=== PATIENT | female | born 1995 | race Caucasian/White ===

== ENCOUNTER 2024-09-15 13:02 | Outpatient (CLI) | payer OTHER, BC, SELFPAY ==
--- OUTSIDE RECORDS SUMMARY | 2024-09-10 12:00 | XMS_ITS ---
Author Organization [facility] Address [address] [facility] [address] [place] [address] Care Team Providers Care Instructor Traffic Safety Name Role Phone Glo Mensah Unavailable [phone] Milena Marion Unavailable [phone] REASON FOR VISIT 34 weeks bpp LVM to confirm mcm Medications Medication SIG (Take, Route, Frequency, Duration) Notes Start Date End Date Status Rikzldm-Opuqya-Sgqnh Pertussis 5-2.5-18.5 LF-MCG/0.5 Suspension Prefilled Syringe as directed Intramuscular 08/31/2024 Active Labetalol HCl 100mg QD Active Active Aspirin 81 81 MG Tablet Delayed Release 1 tablet Orally Once a day Active Abrysvo 120 MCG/0.5ML Solution Reconstituted as directed Intramuscular 08/31/2024 Active Social History Sex Assigned At : Social History Observation Description Sex Assigned At Female Social History Sexual History: Social Info Question Answer Notes Sexual History Had sex in the past 12 months (vaginal, oral, or anal)? Yes Drugs/Alcohol: Social Info Question Answer Notes Drugs Have you used drugs other than those for medical reasons in the past 12 months? No Alcohol Screen Did you have a drink containing alcohol in the past year? Yes How often did you have a drink containing alcohol in the past year? Monthly or less (1 point) Points 1 Interpretation Negative Vital Signs Weight 256.4 lbs 09/10/2024 BMI 40.158 kg/m2 09/10/2024 Encounters Encounter Location Date Provider Diagnosis [facility] LW-NR [address] [facility] [address] [place] [address] 09/10/2024 Milena Marion 33 weeks gestation o f Z3A.33 ; Supervision of other high risk pregnancies, third trimester O09.893 and Chronic hypertension affecting O10.919 Assessments Encounter Date Diagnosis (ICD Code) Assessment Notes Treatment Notes Treatment Clinical Notes Section Notes 09/10/2024 33 weeks gestation of (ICD-10 - Z3A.33) 09/10/2024 Supervision of other high risk pregnancies, third trimester (ICD-10 - O09.893) 09/10/2024 Chronic hypertension affecting (ICD-10 - O10.919) Plan Of Treatment Next Appt Details Follow Up: 2 - 3 Days, Reaso n: NST Provider Name:Gala Chowdhury, 09/15/2024 03:00:00 PM, [address], [address], [address], Provider Name:Gala Chowdhury, 09/15/2024 03:45:00 PM, [address], [address], Provider Name:Gala Chowdhury, 09/18/2024 02:00:00 PM, [address] , [address], [address], Provider Name:Michelle Nayana, 09/18/2024 02:45:00 PM, [address] [facility], [address], [address], Provider Name:Gala Chowdhury, 09/22/2024 03:00:00 PM, [address], [address], [address], Provider Name:Gala Chowdhury, 09/22/2024 03:45:00 PM, [address], [address], [address], Provider Name:Gala Chowdhury, 09/25/2024 02:30:00 PM, [address] , [facility] [address] [place] [address], [address], Provider Name:Michelle Kraus, 09/25/2024 03:00:00 PM, [address], [address], [place], [address], Provider Name:Gala Olivojoanna, 09/29/2024 03:00:00 PM, [address], [address], [place], [address], Provider Name:Gala Trenton, 09/29/2024 03:45:00 PM, [address], [address], [place], [address], Provider Name:Milena Marion, 10/02/2024 03:00:00 PM, [address], [address], [place], [address], Provider Name:Milena Marion, 10/02/2024 03:45:00 PM, [address], [address], [place], [address], Provider Name:Christiana Willis, 10/06/2024 01:30:00 PM, [address], [address], [place], [address], Provider Name:Christiana Willis, 10/06/2024 02:15:00 PM, [address], [address], [place], [address], Provider Name:Julieta Zapata , 10/09/2024 02:00:00 PM, [address], [address], [place], [address], Provider Name:Julieta Zapata , 10/09/2024 02:45:00 PM, [address], [address], [place], [address], Provider Name:Julieta Zapata , 10/13/2024 10:30:00 AM, [address], [address], [place], [address], Provider Name:Julieta Zapata , 10/13/2024 11:30:00 AM, [address] [facility], [facility] [address] [place] [address], [address], Provider Name:Gala Chowdhury, 10/15/2024 12:00:00 AM, [address] [facility], [address], [address], Provider Name:Gala Olivojoanna, 11/26/2024 02:45:00 PM, [address] [facility], [address], [address], Progress Notes * MILADYDanaya ADOB:1995 (28 yo F)Acc No.[id number]:09/10/2024 Progress Note Patient: Olesya Haines Provider: Ciera Marion MD :1995 A ge:28 Y S ex:Female Date:09/10/2024 Address:[address] [place] [address] Subjective: * Chief Complaints: * 3 4 weeks bpp LVM to confirm mcm * Medical History: Obesity High Blood Pressure : yes Medical History Verified * Explosives Truck Driver History: P ap Smear History: D ate of Last Pap/HPV: 0 -2021 L ast Pap/HPV Results: N ormal Pap M enstrual History: C urrently having menstrual cycles? Y es L MP: 0 10/25/2023 L ength Between Cycles: 2 1-32 Days L ength of Flow: 2 -7 Days S exual Activity/Contraception: C urrently sexually active Y es E dede sexually active Y es B irth control (Historical) o ral contraceptive pill. L ast Pap Smear/HPV Date (Historical) , negative. * OB History: P regnancy History (GPA) T otal Pregnancies 1, Full Term 0, Premature 0, AB. Induced 0, AB. Spontaneous 0, Ectopics 0, Multiple Births 0, Living 0. G P : 1 P regnancy # 1: C urrent . * Surgical History: none Surgical History verified. * Hospitalization/Major Diagno stic Procedure: none Hospitalization Verified. * Family History: M other: diagnosed with Diabetes mellitus without mention of complication, type II or unspecified type, not stated as uncontrolled. F ather: diagnosed with Unspecified essential hypertension. M atecarmen Grand Father: diagnosed with Heart disease, Diabetes mellitus without mention of complication, type II or unspecified type, not stated as uncontrolled. P aternal Grand Mother: diagnosed with Heart disease. F amily History Verified.. * Social History: T obacco Use: T obacco Use/Smoking S RAHUL STATUS: Never smoker. S exual History: S exual History H ad sex in the past 12 months (vaginal, oral, or anal)? Y es D rugs/Alcohol: D rugs H ave you used drugs other than those for medical reasons in the past 12 months? N o Alcohol Screen D id you have a drink containing alcohol in the past year? Y es H ow often did you have a drink containing alcohol in the past year? M onthly or less (1 point) P oints 1 I nterpretation N egative S ocial History Verified. * Medications: T akingAbrysvo(RSV Pre-Fusion F A&B Vac Rcmb) 120 MCG/0.5ML Solution Reconstituted as directed Intramuscular Aspirin 81(Aspirin) 81 MG Tablet Delayed Release 1 tablet Orally Once a day Labetalol HCl , Notes to Pharmacist: 100mg QDPrenatal( MV-Min-Fe Fum-FA-DHA) Kuhhhbt-Mjaluk-Tjqay Pertussis 5-2.5-18.5 LF-MCG/0.5 Suspension Prefilled Syringe as directed Intramuscular Medication List reviewed and reconciled with the patientTaking Abrysvo(RSV Pre-Fusion F A&B Vac Rcmb) 120 MCG/0.5ML Solution Reconstituted as directed Intramuscular Taking Aspirin 81(Aspirin) 81 MG Tablet Delayed Release 1 tablet Orally Once a day Taking Labetalol HCl , Notes to Pharmacist: 100mg QDTaking ( MV-Min-Fe Fum-FA-DHA) Taking Imebdny-Oecxby-Qcexm Pertussis 5-2.5-18.5 LF-MCG/0.5 Suspension Prefilled Syringe as directed Intramuscular Medication List reviewed and reconciled with the patient * Allergies: y esAllergies Verified. Objective: * Vitals: W t: 256.4 lbs, BMI: 40.158 Index. Assessment: * Assessment: 1. S upervision of other high risk pregnancies, third trimester - O09.893 (Primary) ?2. 3 3 weeks gestation of - Z3A.33 3 . C hronic hypertension affecting - O10.919 Plan: * Procedure Codes: r ob Return OB [id number] HEDIS SUBSEQUENT CARE * Follow Up: 2 - 3 Days (Reason: NST) Billing Information: * Visit Code: juan diego Return OB Visit. * Procedure Codes: juan diego Return OB Visit. 0502F HEDIS SUBSEQUENT CARE. * Sign off status: Completed Visit Status: A RR (Check-In) true * Provider: Ciera Marion MD Date: 09/10/2024 Generated for Polo gray/Mercy/Maryitting on: 09/15/2024 01:16 PM EDT
--- OUTSIDE RECORDS SUMMARY | 2024-09-15 13:15 | XMS_ITS | Data Portability ---
Author Organization [facility]OD[facility]IND Address [address] [place] [address] Assessment No assessment recorded. Plan of Treatment Reminders Order Date Submit Date Provider Last Modified By Organization Details Last Modified Time Details Appointments None record ed. Lab None record ed. Referral None record ed. Procedures None record ed. Surgeries None record ed. Imaging None record ed. Medication Orders None record ed. Patient TargetsNo targets recorded. Patient InstructionsNo instructions recorded. Reason for Referral None Reported. Problems Name Problem SNOMED Code Status Onset Date Resolution Date Notes Provider Name and Address Organization Details Recorded Time Essential hypertension 99351079 Active 2023 Janeen Camargo [facility] 14:40:35 Obesity 892531527 Active 2023 Constantino Nelson MD [address] [place] [address], [phone] [place] [address] Primary Care 09:51:43 Problem Notes None recorded. Procedures Surgical History Date Name Laterality Status Provider Name and Address Organization Details Recorded Time 07/02/2022 Date of Last Pap Smear completed Janeen Nyaradha Camargo [facility] 04/10/2023 14:40:48 Imaging Results None recorded. Procedure Notes None recorded. Medical Equipment None Reported. Allergies No known drug allergies Medications Name Sig Start Date Stop Date Status Note LastModified by Organization Details LastModified Time phentermine 15 mg capsule TAKE 1 CAPSULE BY MOUTH ONCE DAILY FOR 30 DAYS 07/04 completed Not Available Not Available Not Available triamcinolo ne acetonide 0.1 % topical cream APPLY TOPICALLY TWICE DAILY 04/10 completed Not Available Not Available Not Available phentermine 30 mg capsule TAKE 1 CAPSULE BY MOUTH ONCE DAILY FOR 30 DAYS active Not Available Not Available No t Available amoxicillin 875 mg tablet TAKE 1 TABLET BY MOUTH TWICE DAILY FOR 10 DAYS 04/10 completed Not Available Not Available Not Available lisinopril 5 mg tablet TAKE 1 TABLET BY MOUTH ONCE DAILY active Not Available Not Available No t Available nitrofurant oin monohydrate /macrocryst als 100 mg capsule active Not Available Not Available Not Available Layolis Fe 0.8 mg-25 mcg (24)/75 mg (4) chewable tablet CHEW AND SWALLOW 1 TABLET BY MOUTH ONCE DAILY active Not Available Not Available No t Available Vitals Date Recorded Body height Body mass index (BMI) Body weight Provider Name and Address Organization Details Last Updated DateTime 04/10/2023 170.18 cm 33.1 kg/m2 39352.35 g Janeen Camargo [facility] 04/10/2023 14:39:41 Date Recorded Body height Heart rate Respiratory rate Body temperature Body mass index (BMI) Body weight Oxygen saturation Oxygen saturation in Arterial blood by Pulse oximetry Systolic And Diastolic Provider Name and Address Organization Details Last Updated DateTime 4 170.18 cm 95 /min 18 /min 98 [degF] 32.2 kg/m2 27320.5 9 g 97 % 97 % 102/70 mm[Hg] Janeen Fay [facility] 4 11:32:31 Date Recorded Body height Provider Name an d Address Organization Details Last Updated DateTime 07/03/2023 170.18 cm Vincentanders Betty [facility] 07/03/2023 13:35:02 Date Recorded Heart rate Body temperature Body mass index (BMI) Body weight Oxygen saturation Oxygen saturation in Arterial blood by Pulse oximetry Systolic And Diastolic Provider Name and Address Organization Details Last Updated DateTime 4 82 /min 97.9 [degF] 32.6 kg/m2 30741.2 1 g 99 % 99 % 114/72 mm[Hg] Tona rachel [facility] 4 13:40:44 Social History None recorded. Functional Status None recorded. Mental Status None recorded. Family History Relationship Description Onset Age of this Age Resolved Age Notes LastModified by Organization Details LastModified Time Mother Diabetes mellitus [email or web address] Not available 2023 14:41:12 Father Hypertensive disorder [email or web address] Not available 2023 14:41:21 Medical History No medical history recorded. Gynecological History Statement/Question Response Date of Last Pap Smear 07/02/2022 Date of LMP 03/25/2023 LMP Approximate Obstetrics History GPAL:G 0 P 0 0 0 0 Immunizations Vaccine Type Date Status Note Provider Nam e and Address Organization Details Recorded Time Influenza, recombinant, quadrivalent, PF 09/12/2021 completed Janeen Camargo [facility] 05/08/2023 11:24:18 COVID-19, mRNA, LNP-S, PF, 30 mcg/0.3 mL dose 10/21/2020 completed Janeen Camargo [facility] 05/08/2023 11:24:18 COVID-19, mRNA, LNP-S, PF, 30 mcg/0.3 mL dose 11/11/2020 completed Janeen Camargo [facility] 05/08/2023 11:24:18 COVID-19, mRNA, LNP-S, PF, 30 mcg/0.3 mL dose, lucila-sucrose 05/05/2021 completed Janeen Camargo [facility] 05/08/2023 11:24:18 Tdap 05/08/2022 completed Janeen Camargo [facility] 05/08/2023 11:24:18 Hep A, adult 01/17/2018 completed Janeen Camargo [facility] 05/08/2023 11:24:18 Influenza, split virus, quadrivalent, PF 11/30/2019 completed Janeen Martinan Camargo null, [facility] 05/08/2023 11:24:18 Influenza, split virus, quadrivalent, PF 12/05/2020 completed [facility] 05/08/2023 11:24:18 Influenza, split virus, quadrivalent, PF 12/21/2022 completed [facility] 05/08/2023 11:24:19 Influenza, split virus, quadrivalent, PF 12/25/2021 completed Janeen Martinan Mary Jo longoria, [facility] 05/08/2023 11:24:19 Influenza, split virus, quadrivalent, PF 01/05/2019 [facility] 05/08/2023 11:24:19 Past Encounters Encounter ID Performer Location Encounter Start Date Encounter Closed Date Diagnosis/Indication Diagnosis SNOMED-CT Code Diagnosis ICD10 Code Diagnosis Note [id number] ALLEN ISRAEL APRN Main Office [address] [place] [address] 04/10/2023 14:37:29 04/10/2023 15:14:26 Obesity 219601484 E66.9 Advised patient that working to achieve a healthy body weight is very important for [facility]cf health and prevention of diseasePat ient was previously successful with the use of phentermin e losing 30-40lb.Hi story of hypertensi on, blood pressure well controlled with lisinopril .Start phentermin e 15mg daily. Discussed medication use and potential side effects.Gi tobias goal of 30min of exercise 5x/weekDis cussed calorie restrictio n and given daily calorie goal of 7935-1649 based on current age, weight and activity level.Disc ussed other weight loss interventi ons including weight loss medicine and/or weight loss surgery.At testation: I, Constantino Nelson MD, discussed case with Allen Israel APRN. I agree with assessment and plan as outlined above.Phen termine started and send via patient case at 15mg dailyretur n in 30 days [id number] ALLEN ISRA[address] APRN Main Office [address] [place] [address] 05/08/2023 11:30:05 05/08/2023 12:05:10 Obesity 259058768 E66.9 Advised patient that working to achieve a healthy body weight is very important for termite technician health and prevention of diseasePat ient was previously successful with the use of phentermin e losing 30-40lb.Hi story of hypertensi on, blood pressure well controlled with lisinopril .Taking phentermin e 15mg daily. Tolerating well. Denies any negative side effects.-5 lb since previous visit.Cont inue current dose.Given goal of 30min of exercise 5x/weekDis cussed calorie restrictio n and given daily calorie goal of 1380-2184 based on current age, weight and activity level.Disc ussed other weight loss interventi ons including weight loss medicine and/or weight loss surgery.At testation: Constantino Romo MD, discussed case with Allen Israel APRN. I agree with assessment and plan as outlined above. Cosmetic surgery [id number] 0 Z41.1 Total Units: 14 units. globellar complexAdv ised to return in 3 months for repeat procedureA dvised to avoid rubbing area for 12-24 hrs.No vigorous exercise for 24 hrsReturn if redness, swelling or signs of allergic reaction occur [id number] ALLEN ISRAEL APRN Main Office [address] [place] [address] 05/29/2023 10:30:06 05/29/2023 11:01:07 Cosmetic surgery 55392562 Z41.1 Total Units: 6 units. frontalisA dvised to return in 3 months for repeat procedureA dvised to avoid rubbing area for 12-24 hrs.No vigorous exercise for 24 hrsReturn if redness, swelling or signs of allergic reaction occur Attestatio n: I, Constantino Nelson MD, discussed case with Allen Israel APRN. I agree with assessment and plan as outlined above. [id number] ALL[address] ISRA[address] APRN Main Office [address] [place] [address] 07/03/2023 13:33:49 07/03/2023 14:22:21 Obesity 971391603 E66.9 Advised patient that working to achieve a healthy body weight is very important for [facility] health and prevention of diseasePat ient was previously successful with the use of phentermin e losing 30-40lb.Hi story of hypertensi on, blood pressure well controlled with lisinopril .Taking phentermin e 15mg daily. Tolerating well. Denies any negative side effects.+3 lblb since previous visit. Patient reports appetite not as well controlled with current dose.Incre ase phentermin e 30mg once daily.Disc ussed medication use and potential side effects.UD S UTD Given goal of 30min of exercise 5x/weekDis cussed calorie restrictio n and given daily calorie goal of 0996-2049 based on current age, weight and activity level.Disc ussed other weight loss interventi ons including weight loss medicine and/or weight loss surgery.At testation: I, Constantino Nelson MD, discussed case with Allen Israel APRN. I agree with assessment and plan as outlined above. Health Concerns Section Related Observation LastModified by Organization Detai ls LastModified Time None Recorded Concern Status LastModified by Organization Details LastModified Time None Recorded Advance Directives Directive None Recorded Payers Insurance Date Sequence Insurance Name Policy Number Policy [employer] Covered Member ID [employer] Member ID Guarantor Name 08/03/2023 1 [place] [id number] Alexandre Diaz II [id number] Olesya Diaz Notes Date Note Type Note Provider Name and Address Organization Details Recorded Time 04/10/2023 text/html Pt presents to [facility] care for wt loss Constantino Nelson MD [address] [place] [address], [phone], [facility] 04/17/2023 08:24:09 05/08/2023 text/html Pt presents for monthly weight loss follow up and would like botox. Constantino Nelson MD [address] [place] [address], [phone], [facility] 05/10/2023 08:09:31 05/29/2023 text/html Patient here to follow up on botox. Constantino Nelson MD [address] [place] [address], [phone], [facility] 05/30/2023 14:17:02 07/03/2023 text/html weight loss follow up Constantino Nelson MD [address] [place] [address], [phone], [facility] 07/05/2023 08:20:54 OBGyn Episode No OBEpisode recorded.
--- OUTSIDE RECORDS SUMMARY | 2024-09-15 13:15 | XMS_ITS | Clinical Summary ---
[facility] Address [address] [place] [address] Care Team Providers Care [employer] Rec[employer]iter Name Role Phone AdamsMai cool Shayna SEMAJ Primary Care Provider Medications sodium-potassiu m-magnesium sulfates (Suprep Bowel Prep Kit) 17.5-3.13-1.6 GM/177ML solution oral solution Take 2 bottles by mouth Take As Directed. Do not eat the day before your procedure. If you didn't receive instructions call [phone]. 354 mL 09/18/19 24 Active hydrocortisone (ANUSOL-HC) 25 MG suppository Insert 1 suppository into the rectum Every Night. 14 suppository 10/04/19 24 Active Encounters Date Type Department Care Team Description 07/03/2024 9:35 AM EDT Lab [facility] [address] [place] [id number] Supervision of high risk in second trimester 07/03/2024 Travel from Last 3 Months Social History Tobacco Use Types Packs/Day Years Used Date Smoking Tobacco: Never Assessed Comments Unknown Sex and Gender Information Value Date Recorded Sex Assigned at Not on file Legal Sex Female 10:48 AM EDT Gender Identity Not on file Sexual Orientation Not on file Plan of Treatment Health Maintenance Due Date Last Done Comments Annual Gynecologic Pelvic and Breast Exam 1994 PAP SMEAR 11/07/2015 ANNUAL PHYSICAL 08/19/2023 COVID-19 Vaccine (4 - 2024-25 season) 2023 05/05/2021, 11/11/2020, 10/21/2020 INFLUENZA VACCINE 12/02/2024 12/21/2022, , 09/12/2021, Additional history exists TDAP/TD VACCINES (2 - Td or Tdap) 05/08/2032 05/08/2022 HEPATITIS C SCREENING Completed 03/27/2024 Pneumococcal Vaccine 0-49 Aged Out No longer eligible based on patient's age to complete this topic Procedures Procedure Name Priority Date/Time Associated Diagnosis Comments POCT POST GLUCOSE TOLERANCE Routine 07/03/2024 10:33 AM EDT Supervision of high risk in second trimester TREPONEMA PALLIDUM AB W/REFLEX RPR Routine 07/03/2024 10:33 AM EDT Supervision of high risk in second trimester CBC (NO DIFF) Routine 07/03/2024 10:33 AM EDT Supervision of high risk in second trimester GLUCOSE, POST 50 GM GLUCOLA Routine 07/03/2024 10:33 AM EDT Supervision of high risk in second trimester HEPATITIS C ANTIBODY Routine 03/27/2024 10:07 AM EST 10 weeks gestation of First trimester from Last 3 Months or Most Recently Relevant to Health Maintenance Results * Treponema pallidum AB w/Reflex RPR (07/03/2024 10:33 AM EDT) Treponemal AB Total Non-Reacti ve Non-React marti 07/03/2024 2:39 PM EDT [facility] Blood Venipuncture / Unknown 07/03/2024 10:33 AM EDT 07/03/2024 10:38 AM EDT Narrative [facility] - 07/03/2024 2:39 PM EDT Reactive results will reflex RPR testing. us Gala Chowdhury MD LAB BLOOD ORDERABLES Final Re sult Performing Organization Address City/[facility]/ZIP Co de Phone Number [facility]
[address] [place] [address], * POCT Post Glucose Tolerance (07/03/2024 10:33 AM EDT) Blood Venipuncture / Unknown 07/03/2024 10:33 AM EDT 07/03/2024 10:38 AM EDT us Gala Chowdhury MD POINT OF CARE TEST ORDERABLES Final Result Performing Organization Address [facility] Co de Phone Number [facility]
[address] [place] [address], * Glucose, Post 50 Gm Glucola (07/03/2024 10:33 AM EDT) Gestational GCT 122 65 - 139 mg/dL 07/03/2024 11:25 AM EDT [facility] Blood Venipuncture / Unknown 07/03/2024 10:33 AM EDT 07/03/2024 10:38 AM EDT us Gala Chowdhury MD LAB BLOOD ORDERABLES Final Re sult Performing Organization Address [facility] Co de Phone Number [facility]
[address] [place] [address], * CBC (No Diff) (07/03/2024 10:33 AM EDT) WBC 8.44 3.40 - 10.80 10*3/mm3 07/03/2024 2:14 PM EDT [facility] RBC 4.36 3.77 - 5.28 10*6/mm3 07/03/2024 2:14 PM EDT [facility] Hemoglobin 12.3 12.0 - 15.9 g/dL 07/03/2024 2:14 PM EDT [facility] Hematocrit 37.4 34.0 - 46.6 % 07/03/2024 2:14 PM EDT [facility] MCV 85.8 79.0 - 97.0 fL 07/03/2024 2:14 PM EDT [facility] MCH 28.2 26.6 - 33.0 pg 07/03/2024 2:14 PM EDT [facility] MCHC 32.9 31.5 - 35.7 g/dL 07/03/2024 2:14 PM EDT [facility] RDW 12.4 12.3 - 15.4 % 07/03/2024 2:14 PM EDT [facility] RDW-SD 38.6 37.0 - 54.0 fl 07/03/2024 2:14 PM EDT [facility] MPV 9.4 6.0 - 12.0 fL 07/03/2024 2:14 PM EDT [facility] Platelets 411 140 - 450 10*3/mm3 07/03/2024 2:14 PM EDT [facility] Blood Venipuncture / Unknown 07/03/2024 10:33 AM EDT 07/03/2024 10:38 AM EDT us Gala Chowdhury MD LAB BLOOD ORDERABLES Final Re sult Performing Organization Address [facility]/ZIP Co de Phone Number [facility]
[address] [place] [address], * Hepatitis C Antibody (03/27/2024 10:07 AM EST) Hepatitis C Ab Non-Reacti ve Non-Reacti ve 03/27/2024 2:50 PM EST [facility] Blood Venipuncture / Unknown 03/27/2024 10:07 AM EST 03/27/2024 10:17 AM EST us Gala Chowdhury MD LAB BLOOD ORDERABLES Final Re sult [facility]
[address] [place] [address], from Last 3 Months or Most Recently Relevant to Health Maintenance Insurance [facility] [employer] PPO Care Teams [employer] Rec[employer]iter Relationship Specialty Start Date End Date Mai Adams APRN [facility] [place] [address] PCP - General Family Medicine 11/24/19
--- OUTSIDE RECORDS SUMMARY | 2024-09-15 13:15 | XMS_ITS | Patient Health Record ---
Author Organization [facility] Group Address [address] [place] [address] Care Team Providers Care Electronic Warfare Technician Name Role Phone Glo Mensah Unavailable [phone] Michelle Kraus Unavailable [phone] Milena Marion Unavailable [phone] Gala Chowdhury Unavailable [phone] Julieta Zapata Unavailable [phone] Christiana Willis Unavailable [phone] Allergies No Known Allergies Results Component Value Reference Range Notes *US Pelvis Complete Transabd ominal/Vaginal (Non-OB) Reviewed date:11/01/2023 08:11:59 AM Interpretation: Performing Lab: Notes/Report: [facility] Transvaginal Pelvic Study Report Name: RASHAUN HENNING Accession/Encounter No:[id number] : 1995 Age: 27 Gender: F Study Date: Oct 31, 2023 Study Time: 11:01 AM Reading Group: Diandra Velazquez MD Referring Group: Glo Mensah APRN Ordering Phys: Glo Mensah APRN Electric Refrigerator Servicer: Indu Hankins RDMS Equipment: Affiniti 30 Study Quality: Good Indications: Cyst and Fibroid seen on outside scan A complete pelvic transvaginal ultrasound was performed. Sag AP Trans Volume cm cm cm ml Uterus 4.22 2.59 3.75 21.46 Uterine fibroid 1: 1.85 1.36 1.83 Right ovary: 2.58 2.17 2.22 6.51 Left ovary: 3.35 2.95 2.62 13.56 Endometrium thickness: 2.2 mm Findings: A transvaginal exam was performed. The uterus is normal and anteverted. The uterus is 4.22 x 2.59 x 3.75 cm, with volume of 21.46 ml. The endometrium measures 2.2 mm. Posterior mid uterine fibroid noted measuring 1.85 x 1.36 x 1.83 cm. Subserosal uterine fibroid. Unremarkable right ovary measures 2.58 x 2.17 x 2.22 cm, volume 6.51 ml. Unremarkable left ovary measures 3.35 x 2.95 x 2.62 cm, volume 13.56 ml. The cervix is 1.55 cm long. Conclusions: Uterus is anteverted with a posterior fibroid. Ovaries appear normal with a dominant follicle noted on the left. No free fluid or adnexal masses noted Approved By: Diandra Velazquez MD Approved at: October 31, 2023 07:28 PM EDT Electronically Signed on Studycast RASHAUN HENNING 2023-10-31 Page 1 of 1 [facility] - , [facility] [address] *US OB Complete Transabdomin al/Vaginal Reviewed date:03/27/2024 12:32:46 PM Interpretation: Performing Lab: Notes/Report: [facility] Transvaginal Obstetric Study Report Name: RASHAUN HENNING Accession/Encounter No:[id number] : 1995 Age: 28 Gender: F Study Date: Mar 27, 2024 Study Time: 08:40 AM Reading Group: Gala Chowdhury MD Referring Group: Gala Chowdhury MD Ordering Phys: Gala Chowdhury MD Performing User: Lili Duarte RDMS Equipment: Affiniti 30 Study Quality: Good Indications: NOB A 1st Trimester ultrasound was performed. General Information Trimester: 1st trimester Gestations: 1 : Intrauterine Gestational Age (Best) Best: 10w 0d Determined by: LMP ROYER: 2024-10-23 Gestational Age (LMP) LMP: 10w 0d First Day of LMP: 2024-01-17 ROYER: 2024-10-23 Gestational Age (Current US) Current US: 9w 3d Current US ROYER by: ROYER: 2024-10-27 General Evaluation cardiac activity: Present Gestational sac: Present Yolk sac: Present pole: Present Biometry (Fetus A) HR: 165 bpm [place]-rump length:26.96 mm9w 3d 11% Findings: Anatomy: Sonographic evaluation reveals mendez intrauterine . cardiac activity present. growth appears normal. Maternal Anatomy: There is a 1.44 x 0.67 x 0.98 cm intramural uterine fibroid in the anterior uterus. There is a 1.7 x 1.83 x 1.86 cm subserosal uterine fibroid. There is a uterine fibroid in the posterior uterus. Conclusions: Mendez IUP noted with cardiac activity. Size is consistent with LMP dating. There are two very small fibroids noted, measurements above. Ovaries and bilateral adnexa appear normal. Approved By: Gala Chowdhury MD Approved at: March 27, 2024 12:07 PM EST Electronically Signed on Studycast RASHAUN HENNING 2024-03-27 Page 1 of 1 Imaging Center - , [facility] [place] *US OB Detailed Anatomy Reviewed date:06/05/2024 05:29:57 PM Interpretation: Performing Lab: Notes/Report: [facility] Transabdominal Obstetric Study Report Name: RASHAUN HENNING Accession/Encounter No:[id number] : 1995 Age: 28 Gender: F Study Date: Jun 05, 2024 Study Time: 09:33 AM Reading Group: Gala Chowdhury MD Referring Group: Gala Chowdhury MD Ordering Phys: Gala Chowdhury MD Performing User: Lili Duarte RDMS Equipment: Affiniti 30 Study Quality: Good Indications: anatomy scan Risk Factors: CHTN Obesity An anatomy ultrasound was performed. General Information Trimester: 2nd/3rd trimester Gestations: 1 : Intrauterine Gestational Age (Best) Best: 20w 0d Determined by: LMP ROYER: 2024-10-23 Gestational Age (Prev Study) Previous US: 20w 0d Previous Study: Mar 2024 by LMP ROYER: 2024-10-23 Gestational Age (LMP) LMP: 20w 0d First Day of LMP: 2024-01-17 ROYER: 2024-10-23 Gestational Age (Current US) Current US: 20w 0d ROYER: 2024-10-23 General Evaluation gender: F cardiac activity: Present Presentation/Position: Cephalic Placental cord insert: Centrally located Placental location: Posterior Biometry (Fetus A) EFW: 315.2g 11 oz 47% MICHELLE-76 HR: 147 bpm BPD: 4.55 cm 19w 5d 39% HADLOCK-84 HC: 17.48 cm20w 0d 42% HADLOCK-84 AC: 15.24 cm20w 3d 60% HADLOCK-84 FL: 2.94 cm 19w 0d 14% HADLOCK-84 FL/HC: 0.17 HC/AC: 1.15 FL/BPD: 0.65 FL/AC: 0.19 Cisterna magna: 3.8 mm Lateral vents: 4.7 mm TCD: 1.74 cm 18w 2d Nuchal fold: 3.46 mm Anatomy (Fetus A) Midline falx: Normal Cisterna magna: Normal Choroid plexus: Normal Lateral ventricles: Normal Cerebellum: Normal CSP: Normal Orbits: Normal Face: Normal Profile: Normal Nasal bone: Normal Nose/Lips: Suboptimal Right upper extr: Normal Right lower extr: Normal Left upper extr: Normal Left lower extr: Normal 4-chamber heart: Suboptimal LVOT: Suboptimal RVOT: Suboptimal Cardiac rhythm: Normal 3VTV: Suboptimal 3VV: Suboptimal Spine: Normal Stomach: Normal Diaphragm: Normal Bowel: Normal Right kidney: Normal Left kidney: Normal Bladder: Normal Abdom. cord insert: Normal Cord vessels: 3 vessel cord Findings: Anatomy: Sonographic evaluation reveals mendez intrauterine in cephalic position, centrally located cord insert. Posterior placenta. cardiac activity present. growth appears normal. Maternal Anatomy: Cervix is 3.21 cm long. Conclusions: Mendez IUP noted with cardiac activity. No anomalies noted at this time however nose/lips, and heart are suboptimal due to position . growth is consistent with dating. Fluid appears normal Approved By: Gala Chowdhury MD Approved at: June 05, 2024 04:40 PM EDT Electronically Signed on Studycast RASHAUN HENNING 2024-06-05 Page 1 of 1 Imaging Center - , [facility] OB Follow-Up Reviewed date:08/31/2024 12:44:15 PM Interpretation: Performing Lab: Notes/Report: [facility] Transabdominal Obstetric Study Report Name: RASHAUN HENNING Accession/Encounter No:[id number] Procedure/Order ID: [id number] : 1995 Age: 28 Gender: F Study Date: Aug 28, 2024 Study Time: 02:15 PM Reading Group: Diandra Velazquez MD Referring Group: Julieta Zapata NP Ordering Phys: Julieta Zapata NP Performing User: Lili Duarte RDMS Equipment: Affiniti 30 Study Quality: Good Indications: growth and BPP Risk Factors: CHTN Obesity A biophysical profile and growth ultrasound was performed. Disclaimer: Ultrasound cannot detect all structural defects or underlying genetic abnormalities. Additionally, some abnormalities develop over time and/or are not detectable until after . General Information Trimester: 2nd/3rd trimester Gestations: 1 : Intrauterine Gestational Age (Best) Best: 32w 0d Determined by: LMP ROYER: 2024-10-23 Gestational Age (Prev Study) Previous US: 32w 0d Previous Study: Mar 2024 by LMP ROYER: 2024-10-23 Gestational Age (LMP) LMP: 32w 0d First Day of LMP: 2024-01-17 ROYER: 2024-10-23 Gestational Age (Current US) Current US: 32w 4d ROYER: 2024-10-19 General Evaluation cardiac activity: Present Presentation/Position: Cephalic Placental location: Posterior Biophysical Profile: Total score: 8 of 8 Heart rate Breathing 2 Movement 2 Tone 2 AFV 2 Amniotic fluid index: 10.66 cm LUQ: 3.34 cm LLQ: 2.18 cm RUQ: 1.7 cm RLQ: 3.44 cm Fluid: Normal Biometry (Fetus A) EFW: 1933.9g 4 lb 4 oz 61% MICHELLE-76 HR: 133 bpm BPD: 8.05 cm 32w 2d 51% HADLOCK-84 HC: 29.89 cm33w 1d 42% HADLOCK-84 AC: 28.12 cm32w 1d 54% HADLOCK-84 FL: 6.19 cm 32w 1d 39% HADLOCK-84 FL/HC: 0.21 HC/AC: 1.06 FL/BPD: 0.77 FL/AC: 0.22 Anatomy (Fetus A) Stomach: Normal Diaphragm: Normal Right kidney: Normal Left kidney: Normal Bladder: Normal Findings: Anatomy: Sonographic evaluation reveals mendez intrauterine in cephalic position. Posterior placenta. cardiac activity present. growth appears normal. Biophysical profile is 8 of 8. Normal ARASH (ARASH = 10.66). Conclusions: Mendez IUP noted with cardiac activity. growth is consistent with dating. [facility] 10/09 Approved By: Diandra Velazquez MD Approved at: August 30, 2024 05:08 PM EDT Electronically Signed on Studycast RASHAUN HENNING 2024-08-28 Page 1 of 1 Imaging Center - , [facility] OB Biophysical Profile w /o Non-Stress Testing Reviewed date:09/03/2024 06:15:00 PM Interpretation: Performing Lab: Notes/Report: [facility] Transabdominal Obstetric Study Report Name: RASHAUN HENNING Accession/Encounter No:[id number] Procedure/Order ID: [id number] : 1995 Age: 28 Gender: F Study Date: Sep 03, 2024 Study Time: 02:40 PM Reading Group: Gala Chowdhury MD Referring Group: Gala Chowdhury MD Ordering Phys: Gala Chowdhury MD Performing User: Komal Palomo RDMS Equipment: Affiniti 30 Study Quality: Good Indications: BPP Risk Factors: CHTN. Obesity A biophysical profile ultrasound was performed. Disclaimer: Ultrasound cannot detect all structural defects or underlying genetic abnormalities. Additionally, some abnormalities develop over time and/or are not detectable until after . General Information Trimester: 2nd/3rd trimester Gestations: 1 : Intrauterine Gestational Age (Best) Best: 32w 6d Determined by: LMP ROYER: 2024-10-23 Gestational Age (LMP) LMP: 32w 6d First Day of LMP: 2024-01-17 ROYER: 2024-10-23 General Evaluation gender: F cardiac activity: Present Presentation/Position: Cephalic Placental location: Posterior Biophysical Profile: Total score: 8 of 8 Heart rate Breathing 2 Movement 2 Tone 2 AFV 2 Amniotic fluid index: 12.08 cm ARASH percentile: 33 % LUQ: 4.23 cm LLQ: 3.3 cm RUQ: 3.1 cm RLQ: 1.45 cm Fluid: Normal Biometry (Fetus A) HR: 138 bpm Anatomy (Fetus A) Stomach: Normal Right kidney: Normal Left kidney: Normal Bladder: Normal Findings: Anatomy: Sonographic evaluation reveals mendez intrauterine in cephalic position. Posterior placenta. cardiac activity present. Biophysical profile is 8 of 8. Normal ARASH (ARSAH = 12 .08). Conclusions: Mendez IUP noted with cardiac activity. [facility] 10/09 Approved By: Gala Chowdhury MD Approved at: September 03, 2024 06:11 PM EDT Electronically Signed on Studycast RASHAUN HENNING 2024-09-03 Page 1 of 1 Imaging Center - , [facility] *US OB Biophysical Profile w /o Non-Stress Testing Reviewed date:09/14/2024 08:41:14 AM Interpretation: Performing Lab: Notes/Report: [facility] Transabdominal Obstetric Study Report Name: RASHAUN HENNING Accession/Encounter No:[id number] Procedure/Order ID: [id number] : 1995 Age: 28 Gender: F Study Date: Sep 10, 2024 Study Time: 03:25 PM Reading Group: Diandra Velazquez MD Referring Group: Milena Marion MD Ordering Phys: Milena Marion MD Performing User: Lili Duarte RDMS Equipment: Affiniti 30 Study Quality: Good Indications: BPP Risk Factors: CHTN Obesity A biophysical profile ultrasound was performed. Disclaimer: Ultrasound cannot detect all structural defects or underlying genetic abnormalities. Additionally, some abnormalities develop over time and/or are not detectable until after . General Information Trimester: 2nd/3rd trimester Gestations: 1 : Intrauterine Gestational Age (Best) Best: 33w 6d Determined by: LMP ROYER: 2024-10-23 Gestational Age (Prev Study) Previous US: 33w 6d Previous Study: Mar 2024 by LMP ROYER: 2024-10-23 Gestational Age (LMP) LMP: 33w 6d First Day of LMP: 2024-01-17 ROYER: 2024-10-23 General Evaluation cardiac activity: Present Presentation/Position: Cephalic Placental location: Posterior Biophysical Profile: Total score: 8 of 8 Heart rate Breathing 2 Movement 2 Tone 2 AFV 2 Amniotic fluid index: 10.17 cm LUQ: 1.24 cm LLQ: 2.22 cm RUQ: 3.15 cm RLQ: 3.56 cm Fluid: Normal Biometry (Fetus A) HR: 140 bpm Anatomy (Fetus A) Stomach: Normal Diaphragm: Normal Bladder: Normal Findings: Anatomy: Sonographic evaluation reveals mendez intrauterine in cephalic position. Posterior placenta. cardiac activity present. Biophysical profile is 8 of 8. Normal ARASH (ARASH = 10 .17). Conclusions: Mendez IUP noted with cardiac activity. [facility] 10/09 Approved By: Diandra Velazquez MD Approved at: September 13, 2024 06:21 PM EDT Electronically Signed on Studycast RASHAUN HENNING 2024-09-10 Page 1 of 1 [facility] - , [facility] URINE DRUG SCREEN Reviewed date:03/27/2024 11:20:08 AM Interpretation:Negative Performing Lab: Notes/Report: Cutoff For Drugs Screened: Amphetamines 500 ng/ml Barbiturates 200 ng/ml Benzodiazepines 150 ng/ml Cocaine 150 ng/ml Methadone 200 ng/ml Opiates 100 ng/ml Phencyclidine 25 ng/ml THC 50 ng/ml Methamphetamine 500 ng/ml Tricyclic Antidepressants 300 ng/ml Oxycodone 100 ng/ml Buprenorphine 10 ng/ml The normal value for all drugs tested is negative. This report includes unconfirmed screening results, with the cutoff values listed, to be used for medical treatment purposes only. Unconfirmed results must not be used for non-medical purposes such as employment or legal testing. Clinical consideration should be applied to any drug of abuse test, particularly when unconfirmed results are used. THC URINE Negative Negative PHENCYCLIDINE SCREEN URINE Negative Negative COCAINE, URINE Negative Negative METHAMPHETAMINE Negative Negative OPIATES URINE Negative Negative AMPHETAMINE SCREEN URINE Negative Negative BENZODIAZEPINE SCREEN, URINE Negative Negative TRICYCLIC ANTIDEPRESSANTS SCREEN URINE Negative Negative METHADONE SCREEN, URINE Negative Negative BARBITURATE SCREEN, URINE Negative Negative OXYCODONE SCREEN URINE Negative Negative BUPRENORPHINE Negative Negative Lab specimens received at a [facility].?See result details for the performing location information. URINE CULTURE Reviewed date:03/30/2024 10:55:42 AM Interpretation:Negative Performing Lab: Notes/Report: URINE CULTURE No growth Lab specimens received at a [facility].?See result details for the performing location information. HEPATITIS C ANTIBODY Reviewed date:03/27/2024 03:51:43 PM Interpretation:Negative Performing Lab: Notes/Report: HEPATITIS C ANTIBODY Non-Reactive Non-Reacti Lab spe cimens received at a [facility].?See result details for the performing location information. HIV-1/O/2 ANTIGEN/ANTIBODY, 4TH GENERATION Reviewed date:03/27/2024 03:51:36 PM Interpretation:Negative Performing Lab: Notes/Report: The HIV antibody/antigen combo assay is a qualitative assay for HIV that includes the p24 antigen as well as antibodies to HIV types 1 and 2. This test is intended to be used as a screening assay in the diagnosis of HIV infection in patients over the age of 2. HIV DUO Non-Reactive Non-Reacti Lab specimens r eceived at a [facility].?See result details for the performing location information. HEMOGLOBIN A1C Reviewed date:03/27/2024 03:51:27 PM Interpretation:5.1 Performing Lab: Notes/Report: Hemoglobin A1C Ranges: Increased Risk for Diabetes 5.7% to 6.4% Diabetes >= 6.5% Diabetic Goal < 7.0% HEMOGLOBIN A1C 5.10 4.80-5.60 % Lab specimens received at a [facility].?See result details for the performing location information. HEPATIC FUNCTION PANEL Reviewed date:03/27/2024 02:48:28 PM Interpretation:Normal Performing Lab: Notes/Report: TOTAL PROTEIN 7.1 6.0-8.5 g/dL ALBUMIN G/DL IN SER/PLAS 4.0 3.5-5.2 g/dL ALT (SGPT) 15 1-33 U/L AST (SGOT) 16 1-32 U/L ALKALINE PHOSPHATASE 69 39-117 U/L BILIRUBIN TOTAL 0.3 0.0-1.2 mg/dL BILIRUBIN DIRECT <0.2 0.0-0.3 mg/dL HEPATITIS B SURFACE ANTIGEN Reviewed date:03/27/2024 02:50:43 PM Interpretation:Negative Performing Lab: Notes/Report: HEPATITIS B SURFACE ANTIGEN Non-Reactive Non-Reacti Lab specimens received at a [facility].?See result details for the performing location information. PROTEIN / CREATININE RATIO, URINE Reviewed date:03/27/2024 03:51:23 PM Interpretation:P:C 0.1 Performing Lab: Notes/Report: PROT/CREAT RATIO, UR 103.0 0.0-200.0 mg/G Crea CREATININE URINE 91.3 PROTEIN URINE 9.4 Lab specimens received at a [facility].?See result details for the performing location information. RUBELLA ANTIBODY, IGG Reviewed date:03/30/2024 09:55:21 AM Interpretation:Immune Performing Lab: Notes/Report: Performed at: [address] [id number] Independent Producer: Ottoniel Barber PhD, Phone: [phone] RUBELLA ANTIBODIES, IGG (REF) 2.87 Immune >0. index Non-immune <0.90 Equivocal 0.90 - 0.99 Immune >0.99 Lab specimens received at a [facility].?See result details for the performing location information. TREPONEMA PALLIDUM (SYPHILIS ) SCREENING CASCADE Reviewed date:03/27/2024 03:51:32 PM Interpretation:Negative Performing Lab: Notes/Report: Reactive results will reflex RPR testing. TREPONEMAL AB TOTAL Non-Reactive Non-Reacti Lab spec imens received at a [facility].?See result details for the performing location information. CHLAMYDIA TRACHOMATIS, NEISS ERIA GONORRHOEAE, PCR W/ CONFIRMATION Reviewed date:03/31/2024 12:10:51 PM Interpretation:Negative Performing Lab: Notes/Report: Performed at: [facility] [id number] Independent Producer: Gurwinder Del Rio MD, Phone: [phone] CHLAMYDIA TRACHOMATIS, LUNA Negative Negative NEISSERIA GONORRHOEAE, LUNA Negative Negative L ab specimens received at a [facility].?See result details for the performing location information. CREATININE, SERUM Reviewed date:03/27/2024 02:48:24 PM Interpretation:0.66 normal Performing Lab: Notes/Report: GFR Categories in Chronic Kidney Disease (CKD)\X09\ \X09\ GFR Category GFR (mL/min/1.73) Interpretation G1\X09\ 90 or greater\X09\ Normal or high (1) G2\X0909\ 60-89 Mild decrease (1) G3a 45-59 Mild to moderate decrease G3b 30-44 Moderate to severe decrease G4 15-29 Severe decrease G5 14 or less Kidney failure\X0909\ \[id number]\ (1)In the absence of evidence of kidney disease, neither GFR category G1 or G2 fulfill the criteria for CKD. eGFR calculation 2020 CKD-EPI creatinine equation, which does not include race as a factor CREATININE MG/DL IN SER/PLAS 0.66 0.57-1.00 mg /dL EGFR CKD-EPI 122.0 >60.0 mL/min/1.73 Lab specim ens received at a [facility].?See result details for the performing location information. URIC ACID Reviewed date:03/27/2024 02:48:36 PM Interpretation:4.0 Performing Lab: Notes/Report: URIC ACID 4.0 2.4-5.7 mg/dL Lab specimens received at a [facility].?See result details for the performing location information. LACTATE DEHYDROGENASE Reviewed date:03/27/2024 02:48:17 PM Interpretation:147 Performing Lab: Notes/Report: LACTATE DEHYDROGENASE 147 135-214 U/L Lab sp ecimens received at a [facility].?See result details for the performing location information. FENTANYL, URINE Reviewed date:03/27/2024 12:04:08 PM Interpretation:Negative Performing Lab: Notes/Report: Negative Threshold: Fentanyl 5 ng/mL The normal value for the drug tested is negative. This report includes final unconfirmed screening results to be used for medical treatment purposes only. Unconfirmed results must not be used for non-medical purposes such as employment or legal testing. Clinical consideration should be applied to any drug of abuse test, particularly when unconfirmed results are used. ? ? ? FENTANYL URINE Negative Negative Lab specimens received at a [facility].?See result details for the performing location information. Non Invasive Testin g Reviewed date:04/06/2024 01:49:15 PM Interpretation:low risk female Performing Lab: Notes/Report: low risk female *US OB Complete Transabdomin al/Vaginal Reviewed date:04/17/2024 11:29:52 AM Interpretation: Performing Lab: Notes/Report: [facility] Transabdominal Obstetric Study Report Name: RASHAUN HENNING Accession/Encounter No:[id number] : 1995 Age: 28 Gender: F Study Date: Apr 17, 2024 Study Time: 10:52 AM Reading Group: Gala Chowdhury MD Referring Group: Gala Chowdhury MD Ordering Phys: Gala Chowdhury MD Performing User: Indu Hankins RDMS Equipment: Affiniti 30 Study Quality: Good Indications: Heart Tones Risk Factors: Obesity A transabdominal OB ultrasound was performed. General Information Trimester: 1st trimester Gestations: 1 : Intrauterine Gestational Age (Best) Best: 13w 0d Determined by: LMP ROYER: 2024-10-23 Gestational Age (Prev Study) Previous US: 13w 0d Previous Study: Mar 2024 by LMP ROYER: 2024-10-23 Gestational Age (LMP) LMP: 13w 0d First Day of LMP: 2024-01-17 ROYER: 2024-10-23 General Evaluation cardiac activity: Present Biometry (Fetus A) HR: 161 bpm Findings: Anatomy: Sonographic evaluation reveals mendez intrauterine . Anterior placenta. cardiac activity present. Conclusions: Mendez IUP noted with cardiac activity. Approved By: Gala Chowdhury MD Approved at: April 17, 2024 11:13 AM EST Electronically Signed on Studycast RASHAUN HENNING 2024-04-17 Page 1 of 1 Imaging Center - , [facility] [address] GLUCOSE, POST 50 GM GLUCOLA Reviewed date:07/03/2024 11:43:10 AM Interpretation:122 passed Performing Lab: Notes/Report: GESTATIONAL GCT 122 65-139 mg/dL Lab specimen s received at a [facility].?See result details for the performing location information. CBC (NO DIFF) Reviewed date:03/27/2024 02:25:00 PM Interpretation:Normal Performing Lab: Notes/Report: WBC, CORRECTED 7.23 3.40-10.80 10*3/mm3 ERYTHROCYTES IN BLOOD BY AUTOMATED COUNT 4.90 3.77-5.28 10*6/mm3 HEMOGLOBIN (G/DL) IN BLOOD 14.2 12.0-15.9 g/dL HEMATOCRIT (%) BY AUTOMATED COUNT 42.2 34.0-46.6 % RBC MCV (FL) BY AUTOMATED COUNT 86.1 79.0-97.0 fL RBC MCH (PG) BY AUTOMATED COUNT 29.0 26.6-33.0 pg RBC MCHC (G/DL) BY AUTOMATED COUNT 33.6 31.5-35.7 g/dL RBC RDW (%) BY AUTOMATED COUNT 12.8 12.3-15.4 % RDW-SD 39.8 37.0-54.0 fl MEAN PLATELET VOLUME (FL) BY AUTOMATED COUNT 9.3 6.0-12.0 fL PLATELETS BY AUTOMATED COUNT 419 140-450 10*3 /mm3 Lab specimens received at a [facility].?See result details for the performing location information. *US OB Follow-Up Reviewed date:08/04/2024 08:53:59 AM Interpretation: Performing Lab: Notes/Report: [facility] Transabdominal Obstetric Study Report Name: RASHAUN HENNING Accession/Encounter No:[id number] Procedure/Order ID: [id number] : 1995 Age: 28 Gender: F Study Date: July 31, 2024 Study Time: 02:35 PM Reading Group: Gala Chowduhry MD Referring Group: Gala Chowdhury MD Ordering Phys: Gala Chowdhury MD Performing User: Lili Duarte RDMS Equipment: Affiniti 30 Study Quality: Good Indications: Incomplete screening. Follow up imaging of heart and nose/lips Risk Factors: CHTN Obesity A limited anatomy ultrasound was performed. Disclaimer: Ultrasound cannot detect all structural defects or underlying genetic abnormalities. Additionally, some abnormalities develop over time and/or are not detectable until after . General Information Trimester: 2nd/3rd trimester Gestations: 1 : Intrauterine Gestational Age (Best) Best: 28w 0d Determined by: LMP ROYER: 2024-10-23 Gestational Age (Prev Study) Previous US: 28w 0d Previous Study: Mar 2024 by LMP ROYER: 2024-10-23 Gestational Age (LMP) LMP: 28w 0d First Day of LMP: 2024-01-17 ROYER: 2024-10-23 Gestational Age (Current US) Current US: 28w 6d ROYER: 2024-10-17 General Evaluation cardiac activity: Present Presentation/Position: Cephalic Amniotic fluid index: 13.63 cm LUQ: 5.45 cm LLQ: 2.86 cm RUQ: 2.64 cm RLQ: 2.68 cm Fluid: Normal Biometry (Fetus A) EFW: 1252.3g 2 lb 12 oz 63% MICHELLE-76 HR: 156 bpm BPD: 7.05 cm 28w 2d 49% HADLOCK-84 HC: 26.7 cm 29w 1d 54% HADLOCK-84 AC: 23.6 cm 27w 6d 40% HADLOCK-84 FL: 5.61 cm 29w 4d 78% HADLOCK-84 FL/HC: 0.21 HC/AC: 1.13 FL/BPD: 0.8 FL/AC: 0.24 Anatomy (Fetus A) Profile: Normal Nose/Lips: Normal 4-chamber heart: Suboptimal LVOT: Normal RVOT: Normal Cardiac rhythm: Normal Stomach: Normal Diaphragm: Normal Findings: Anatomy: Sonographic evaluation reveals mendez intrauterine in cephalic position. cardiac activity present. growth appears normal. Normal ARASH (ARASH = 13.63). Conclusions: Mendez IUP noted with cardiac activity. Reevaluation of anatomy that was not previously seen appears normal on today's exam. growth is consistent with dating. Fluid appears normal Approved By: Gala Chowdhury MD Approved at: August 03, 2024 04:32 PM EDT Electronically Signed on Studycast RASHAUN HENNING 2024-07-31 Page 1 of 1 Imaging Center - , [facility] TREPONEMA PALLIDUM (SYPHILIS ) SCREENING CASCADE Reviewed date:07/03/2024 02:46:28 PM Interpretation:Negative Performing Lab: Notes/Report: Reactive results will reflex RPR testing. TREPONEMAL AB TOTAL Non-Reactive Non-Reacti Lab spec imens received at a [facility].?See result details for the performing location information. CBC (NO DIFF) Reviewed date:07/03/2024 02:46:33 PM Interpretation:Normal Performing Lab: Notes/Report: WBC, CORRECTED 8.44 3.40-10.80 10*3/mm3 ERYTHROCYTES IN BLOOD BY AUTOMATED COUNT 4.36 3.77-5.28 10*6/mm3 HEMOGLOBIN (G/DL) IN BLOOD 12.3 12.0-15.9 g/dL HEMATOCRIT (%) BY AUTOMATED COUNT 37.4 34.0-46.6 % RBC MCV (FL) BY AUTOMATED COUNT 85.8 79.0-97.0 fL RBC MCH (PG) BY AUTOMATED COUNT 28.2 26.6-33.0 pg RBC MCHC (G/DL) BY AUTOMATED COUNT 32.9 31.5-35.7 g/dL RBC RDW (%) BY AUTOMATED COUNT 12.4 12.3-15.4 % RDW-SD 38.6 37.0-54.0 fl MEAN PLATELET VOLUME (FL) BY AUTOMATED COUNT 9.4 6.0-12.0 fL PLATELETS BY AUTOMATED COUNT 411 140-450 10*3 /mm3 Lab specimens received at a [facility].?See result details for the performing location information. ABO/RH Reviewed date:03/27/2024 01:25:33 PM Interpretation:A+ Performing Lab: Notes/Report: ABO TYPE A RH TYPE Positive Lab specimens r eceived at a [facility].?See result details for the performing location information. ANTIBODY SCREEN Reviewed date:03/27/2024 01:25:28 PM Interpretation:Negative Performing Lab: Notes/Report: ANTIBODY SCREEN Negative Lab specimen s received at a [facility].?See result details for the performing location information. URINALYSIS W/ CULTURE IF IND ICATED Reviewed date:03/27/2024 02:26:21 PM Interpretation:Negative Performing Lab: Notes/Report: In absence of clinical symptoms, the presence of pyuria, bacteria, and/or nitrites on the urinalysis result does not correlate with infection. Urine microscopic not indicated. COLOR OF URINE Yellow Yellow, St CLARITY OF URINE Clear Clear PH OF URINE BY AUTOMATED RYAN T STRIP 5.5 5.0-8.0 SPECIFIC GRAVITY OF URINE BY AUTOMATED TEST STRIP 1.014 1.005-1.03 GLUCOSE IN URINE BY AUTOMATE D TEST STRIP Negative Negative KETONES IN URINE BY AUTOMATE D TEST STRIP Negative Negative BILIRUBIN, TOTAL IN URINE BY AUTOMATED TEST STRIP Negative Negative HEMOGLOBIN IN URINE BY AUTOMATED TEST STRIP Negative Negative PROTEIN IN URINE BY AUTOMATE D TEST STRIP Negative Negative LEUKOCYTE ESTERASE IN URINE BY AUTOMATED TEST STRIP Negative Negative NITRITE IN URINE BY AUTOMATE D TEST STRIP Negative Negative UROBILINOGEN IN URINE BY AUTOMATED TEST STRIP 0.2 E.U./dL 0.2 - 1.0 Lab specimens recei denilson at a [facility].?See result details for the performing location information. Reason For Referral Reason PFPT Diagnosis 1 Pelvic pain (R10.2) Referral Organization [facility] Referring Provider First Name Gala Referring Provider Last Name [place] Referring Provider Speciality OB - Gynec ology General Notes Glo Medina 07/03 10:13:10 AM >faxxd order to kort Referral Priority Routine Medications Medication SIG (Take, Route, Frequency, Duration) Notes Start Date End Date Status Aspirin 81 81 MG Tablet Delayed Release 1 tablet Orally Once a day Active Labetalol HCl 100mg QD Active Active Ypcenyx-Itpeem-Ydpze Pertussis 5-2.5-18.5 LF-MCG/0.5 Suspension Prefilled Syringe as directed Intramuscular 08/31/2024 Active Abrysvo 120 MCG/0.5ML Solution Reconstituted as [...] less (1 point) Points 1 Interpretation Negative Problems Problem Type SNOMED Code ICD Code Onset Dates Problem Status W/U Status Risk Notes Problem Body mass index 30.00 to 34.99 (499435154994807 ) BMI 34.0-34.9,adult (Z68.34) Active confirmed Problem Supervision of high risk (636350533) Supervision of other high risk pregnancies, third trimester (O09.893) Active confirmed Problem Pain in pelvis (99432759) Pelvic pain (R10.2) Active confirmed Problem Benign essential hypertension in obstetric context (30237164) Chronic hypertension affecting (O10.919) Active confirmed Problem Morbid obesity (147387902) Class 3 obesity (E66.01) Active confirmed Vital Signs Blood pressure diastolic 82 mm Hg 09/03/2024 Height 67 in 09/03/2024 Blood pressure systolic 120 mm Hg 09/03/2024 Weight 256.4 lbs 09/10/2024 BMI 40.158 kg/m2 09/10/2024 Encounters Encounter Location Date Provider Diagnosis [facility] [address] [place] [address] 03/13/2024 Glo Mensah [facility] [address] [facility] [address] [place] [address] 03/19/2024 Glo Mensah Encounter to determine viability of , single or unspecified fetus O36.80X0 [facility] [address] [facility] [address] [place] [address] 06/30/2024 Gala Chowdhury [facility] [address] [facility] [address] [place] [address] 08/31/2024 Gala Chowdhury [facility] [address] [place] [address] 09/01/2024 Gala Chowdhury Pre-existing essential hypertension complicating , third trimester O10.013 [facility] [address] [place] [address] 10/21/2023 Glo Mensah [facility] [address] [place] [address] 03/03/2024 Gala Chowdhury [facility] [address] [place] [address] 08/25/2024 Gala Chwodhury [facility] [address] [place] [address] 08/31/2024 Gala Chowdhury [facility] [address] [facility] [place] [address] 09/07/2024 [facility] [address] [place] [address] 10/31/2023 Glo Mensah Uterine leiomyoma, unspecified location D25.9 [facility] [address] [facility] [place] [address] 04/17/2024 Gala Chowdhury Supervision of other high risk pregnancies, first trimester O09.891 ; Chronic hypertension affecting O10.919 and 13 weeks gestation of Z3A.13 [facility] [address] [facility] [place] [address] 05/08/2024 Gala Chowdhury 16 weeks gestation of Z3A.16 ; Supervision of high risk in second trimester O09.92 and Chronic hypertension affecting O10.919 [facility] [address] [facility] [address] [place] [address] 06/05/2024 Gala Chowdhury Supervision of high risk in second trimester O09.92 ; Chronic hypertension affecting O10.919 and 20 weeks gestation of Z3A.20 [facility] [address] [facility] [address] [place] [address] 07/03/2024 Gala Chowdhury Supervision of high risk in second trimester O09.92 ; 24 weeks gestation of Z3A.24 ; Chronic hypertension affecting O10.919 ; Pelvic pain R10.2 and Class 3 obesity E66.01 [facility] [address] [facility] [address] [place] [address] 07/31/2024 Christiana Willis Supervision of high risk in second trimester O09.92 ; Chronic hypertension affecting O10.919 ; 28 weeks gestation of Z3A.28 and Encounter for screening for maternal depression Z13.32 [facility] [address] [address] 08/11/2024 Gala Chowdhury Chronic hypertension affecting O10.919 ; Supervision of other high risk pregnancies, third trimester O09.893 ; 29 weeks gestation of Z3A.29 and Class 3 obesity E66.01 [facility] [address] [address] 08/25/2024 Gala Chowdhury Class 3 obesity E66.01 ; Supervision of other high risk pregnancies, third trimester O09.893 ; 32 weeks gestation of Z3A.32 and Chronic hypertension affecting O10.919 [facility] [address] [facility] [address] [place] [address] 08/28/2024 Julieta Zapata Supervision of other high risk pregnancies, third trimester O09.893 ; Chronic hypertension affecting O10.919 and 32 weeks gestation of Z3A.32 [facility] [address] [facility] [address] [place] [address] 08/31/2024 Gala Chowdhury Chronic hypertension affecting O10.919 ; Supervision of other high risk pregnancies, third trimester O09.893 ; Class 3 obesity E66.01 and 32 weeks gestation of Z3A.32 [facility] [address] [facility] [address] [place] [address] 09/03/2024 Gala Chowdhury BMI 34.0-34.9,adult Z68.34 ; Chronic hypertension affecting O10.919 ; Supervision of other high risk pregnancies, third trimester O09.893 ; Class 3 obesity E66.01 and 32 weeks gestation of Z3A.32 [facility] [address] [facility] [address] [place] [address] 09/07/2024 Julieta Zapata Supervision of other high risk pregnancies, third trimester O09.893 ; Chronic hypertension affecting O10.919 and 33 weeks gestation of Z3A.33 [facility] [address] [facility] [address] [place] [address] 09/10/2024 Milena Marion 33 weeks gestation of Z3A.33 ; Supervision of other high risk pregnancies, third trimester O09.893 and Chronic hypertension affecting O10.919 [facility] [address] [facility] [address] [place] [address] 07/31/2024 Gala Chowdhruy Supervision of high risk in second trimester O09.92 and Chronic hypertension affecting O10.919 [facility] [address] [facility] [address] [place] [address] 04/17/2024 Gala Chowdhury Supervision of other high risk pregnancies, first trimester O09.891 [facility] [address] [facility] [address] [place] [address] 06/05/2024 Gala Chowdhury Supervision of high risk in second trimester O09.92 and Chronic hypertension affecting O10.919 [facility] [address] [facility] [address] [place] [address] 08/28/2024 Julieta Zapata Supervision of high risk in second trimester O09.92 and Chronic hypertension affecting O10.919 [facility] [address] [facility] [address] [place] [address] 09/10/2024 Milena Marion Pre-existing essential hypertension complicating , third trimester O10.013 [facility] [address] [facility] [address] [place] [address] 03/27/2024 Gala Chowdhury 10 weeks gestation of Z3A.10 ; Supervision of other high risk pregnancies, first trimester O09.891 ; First trimester Z34.91 ; BMI 34.0-34.9,adult Z68.34 and Chronic hypertension affecting O10.919 [facility] [address] [facility] [address] [place] [address] 09/03/2024 Gala Chowdhury Pre-existing essential hypertension complicating , third trimester O10.013 [facility] [address] [facility] [address] [place] [address] 03/27/2024 Gala Chowdhury Encounter to determine viability of , single or unspecified fetus O36.80X0 [facility] [address] [place] [address] 10/31/2023 Glo Mensah Uterine leiomyoma, unspecified location D25.9 Assessments Encounter Date Diagnosis (ICD Code) Assessment Notes Treatment Notes Treatment Clinical Notes Section Notes 10/31/2023 Uterine leiomyoma, unspecified location (ICD-10 - D25.9) 10/31/2023 Uterine leiomyoma, unspecified location (ICD-10 - D25.9) Reviewed US with patient Uterine fibroid stable Patient cont to take OCP L ovarian cyst resolved RTC PRN 03/27/2024 10 weeks gestation of (ICD-10 - Z3A.10) 03/27/2024 Supervision of other high risk pregnancies, first trimester (ICD-10 - O09.891) 03/27/2024 Encounter to determine viability of , single or unspecified fetus (ICD-10 - O36.80X0) 03/19/2024 Encounter to determine viability of , single or unspecified fetus (ICD-10 - O36.80X0) 04/17/2024 Supervision of other high risk pregnancies, first trimester (ICD-10 - O09.891) 04/17/2024 Chronic hypertension affecting (ICD-10 - O10.919) 05/08/2024 Supervision of high risk in second trimester (ICD-10 - O09.92) 05/08/2024 16 weeks gestation of (ICD-10 - Z3A.16) 06/05/2024 Supervision of high risk in second trimester (ICD-10 - O09.92) 06/05/2024 Supervision of high risk in second trimester (ICD-10 - O09.92) 07/03/2024 Supervision of high risk in second trimester (ICD-10 - O09.92) 07/03/2024 24 weeks gestation of (ICD-10 - Z3A.24) 04/17/2024 Supervision of other high risk pregnancies, first trimester (ICD-10 - O09.891) 08/25/2024 Supervision of other high risk pregnancies, third trimester (ICD-10 - O09.893) 08/25/2024 Class 3 obesity (ICD-10 - E66.01) 08/28/2024 Supervision of high risk in second trimester (ICD-10 - O09.92) 08/31/2024 Supervision of other high risk pregnancies, third trimester (ICD-10 - O09.893) 08/31/2024 Chronic hypertension affecting (ICD-10 - O10.919) 09/03/2024 Pre-existing essential hypertension complicating , third trimester (ICD-10 - O10.013) 09/03/2024 BMI 34.0-34.9,adult (ICD-10 - Z68.34) 09/10/2024 Pre-existing essential hypertension complicating , third trimester (ICD-10 - O10.013) 09/10/2024 33 weeks gestation of (ICD-10 - Z3A.33) 09/10/2024 Supervision of other high risk pregnancies, third trimester (ICD-10 - O09.893) 09/03/2024 Supervision of other high risk pregnancies, third trimester (ICD-10 - O09.893) 09/03/2024 Chronic hypertension affecting (ICD-10 - O10.919) 07/31/2024 Supervision of high risk in second trimester (ICD-10 - O09.92) 07/31/2024 Supervision of high risk in second trimester (ICD-10 - O09.92) 07/31/2024 Chronic hypertension affecting (ICD-10 - O10.919) 09/07/2024 Supervision of other high risk pregnancies, third trimester (ICD-10 - O09.893) 09/07/2024 Chronic hypertension affecting (ICD-10 - O10.919) 08/28/2024 Supervision of other high risk pregnancies, third trimester (ICD-10 - O09.893) 08/28/2024 Chronic hypertension affecting (ICD-10 - O10.919) 08/11/2024 Supervision of other high risk pregnancies, third trimester (ICD-10 - O09.893) 08/11/2024 Chronic hypertension affecting (ICD-10 - O10.919) 09/01/2024 Pre-existing essential hypertension complicating , third trimester (ICD-10 - O10.013) 08/11/2024 29 weeks gestation of (ICD-10 - Z3A.29) 08/28/2024 32 weeks gestation of (ICD-10 - Z3A.32) 03/27/2024 First trimester (ICD-10 - Z34.91) 09/07/2024 33 weeks gestation of (ICD-10 - Z3A.33) 07/31/2024 28 weeks gestation of (ICD-10 - Z3A.28) 07/31/2024 Chronic hypertension affecting (ICD-10 - O10.919) 09/10/2024 Chronic hypertension affecting (ICD-10 - O10.919) 08/31/2024 Class 3 obesity (ICD-10 - E66.01) 08/28/2024 Chronic hypertension affecting (ICD-10 - O10.919) 08/25/2024 32 weeks gestation of (ICD-10 - Z3A.32) 07/03/2024 Chronic hypertension affecting (ICD-10 - O10.919) 06/05/2024 20 weeks gestation of (ICD-10 - Z3A.20) 06/05/2024 Chronic hypertension affecting (ICD-10 - O10.919) 06/05/2024 Chronic hypertension affecting (ICD-10 - O10.919) 05/08/2024 Chronic hypertension affecting (ICD-10 - O10.919) 04/17/2024 13 weeks gestation of (ICD-10 - Z3A.13) 03/27/2024 BMI 34.0-34.9,adult (ICD-10 - Z68.34) 07/03/2024 Pelvic pain (ICD-10 - R10.2) 08/25/2024 Chronic hypertension affecting (ICD-10 - O10.919) 08/31/2024 32 weeks gestation of (ICD-10 - Z3A.32) 09/03/2024 Class 3 obesity (ICD-10 - E66.01) 08/11/2024 Class 3 obesity (ICD-10 - E66.01) 07/31/2024 Encounter for screening for maternal depression (ICD-10 - Z13.32) 09/03/2024 32 weeks gestation of (ICD-10 - Z3A.32) 07/03/2024 Class 3 obesity (ICD-10 - E66.01) 03/27/2024 Chronic hypertension affecting (ICD-10 - O10.919) Plan Of Treatment Future Test Test Name Order Date *US OB Follow-Up 09/01/2024 *US OB Biophysical Profile w/o Non-Stres s Testing 09/15/2024 Next Appt Details Provider Name:Gala Chowdhury, 09/15/2024 03:00:00 PM, [address] [facility], [address], [address], Provider Name:Gala Chowdhury, 09/15/2024 03:45:00 PM, [address] [facility], [facility] [address], [address], Provider Name:Gala Chowdhury, 09/18/2024 02:00:00 PM, [address] [facility], [address], [address], Provider Name:Michelle Kraus, 09/18/2024 02:45:00 PM, [address] [facility], [facility] [address] [place] [address], [address], Provider Name:Gala Mishrakojo, 09/22/2024 03:00:00 PM, [address], [facility] [place], [address], Provider Name:Gala Chowdhury, 09/22/2024 03:45:00 PM, [address], [address], [place], [address], Provider Name:Gala Olivojoanna, 09/25/2024 02:30:00 PM, [address], [address], [place], [address], Provider Name:Michelle Nayana, 09/25/2024 03:00:00 PM, [address], [address], [place], [address], Provider Name:Gala Olivojoanna, 09/29/2024 03:00:00 PM, [address], [address], [place], [address], Provider Name:Gala Olivojoanna, 09/29/2024 03:45:00 PM, [address], [address], [place], [address], Provider Name:Milena Marion, 10/02/2024 03:00:00 PM, [address], [address], [place], [address], Provider Name:Milena Marion, 10/02/2024 03:45:00 PM, [address], [place], [address], Provider Name:Christiana Willis, 10/06/2024 01:30:00 PM, [address], [address], [place], [address], Provider Name:Christiana Willis, 10/06/2024 02:15:00 PM, [address], [address], [place], [address], Provider Name:Julieta Zapata , 10/09/2024 02:00:00 PM, [address], [address], [place], [address], Provider Name:Julieta Zapata , 10/09/2024 02:45:00 PM, [address], [place], [address], Provider Name:Julieta Zapata , 10/13/2024 10:30:00 AM, [address], [place], [address], Provider Name:Julieta Zapata , 10/13/2024 11:30:00 AM, [address], [place], [address], Provider Name:Gala Chowdhury, 10/15/2024 12:00:00 AM, [address], [place], [address], Provider Name:Gala Chowdhury, 11/26/2024 02:45:00 PM, [address], [place], [address], Insurance Providers Payer Name Payer Address Payer Phone Subscriber Number Group Number Insured Name Patient Relationship to Insured Coverage Start Date Coverage End Date Rob GUERRA [address] [place] [address] [id number] Tabitha Gaspar II Spouse - patient is the spouse of the insured Medical (General) History Medical History History ICD Code Obesity High Blood Pressure Surgical History Surgery Date(Month/Year) none Hospitalization History Reason Date(Month/Year) none
--- OUTSIDE RECORDS SUMMARY | 2024-09-15 13:15 | XMS_ITS | Clinical Summary ---
Author Organization Healthcare Address [address] [place] [address] Care Team Providers Care Terra Cotta Setter Name Role Phone Mai Adams APRN Primary Care Provider Allergies No known active allergies Medications Norethin-Eth Estradiol-Fe 0.8-25 MG-MCG chewable tablet Chew 1 tablet 1 (one) time each day. 09/08/2020 Active labetalol (Normodyne) 100 MG tablet Take 1 tablet (100 mg) by mouth 2 (two) times a day. 60 tablet 3 02/17/2024 Active Active Problems Problem Noted Date Diagnosed Date Benign essential hypertension 10/09/2019 Obesity (BMI 30.0-34.9) 10/09/2019 Social History Tobacco Use Types Packs/Day Years Used Date Smoking Tobacco: Never Passive Smoke Exposure: Never Smokeless Tobacco: Never Humiliation, Afraid, Rape, and Kick questionnair e Answer Date Recorded Within the last year, have y ou been afraid of your partner or ex-partner? No 11/11/2023 Within the last year, have y ou been humiliated or emotionally abused in other ways by your partner or ex-partner? No Within the last year, have y ou been kicked, hit, slapped, or otherwise physically hurt by your partner or ex-partner? No 11/11/2023 Within the last year, have y ou been raped or forced to have any kind of sexual activity by your partner or ex-partner? No 11/11/2023 PHQ-2 Answer Date Recorded Patient Health Questionnaire-2 Score 0 11/11/2023 Hunger Vital Sign Answer Date Recorded Within the past 12 months, y ou worried that your food would run out before you got the money to buy more. Never true 11/11/19 24 Within the past 12 months, t he food you bought just didn't last and you didn't have money to get more. Never true 11/11/2023 PRAPARE - Transportation Answer Date Re corded In the past 12 months, has l ack of transportation kept you from medical appointments or from getting medications? No 11/2023 In the past 12 months, has l ack of transportation kept you from meetings, work, or from getting things needed for daily living? No 11/11/2023 Housing Stability Vital Sign Answer Philippe e Recorded In the last 12 months, was t here a time when you were not able to pay the mortgage or rent on time? No 11/11/2023 In the last 12 months, how many places have you lived? 1 11/11/2023 In the last 12 months, was t here a time when you did not have a steady place to sleep or slept in a skilled nursing (including now)? No 11/11/2023 Utilities Answer Date Recorded In the past 12 months has th e electric, gas, oil, or water company threatened to shut off services in your home? No 11/11/2023 PHQ-2A Answer Date Recorded Patient Health Questionnaire-2 Score 0 01/18/2023 Comments Unknown Sex and Gender Information Value Date Recorded Sex Assigned at Not on file Legal Sex Female 7:19 PM EDT Gender Identity Not on file Sexual Orientation Not on file Last Filed Vital Signs Vital Sign Reading Time Taken Comments Blood Pressure 118/80 11/11/2023 11:15 AM EDT Pulse 93 11/11/2023 11:15 AM EDT Temperature - - Respiratory Rate 16 08/28/2018 12:57 PM EDT Oxygen Saturation 98% 11/11/2023 11:15 AM EDT Inhaled Oxygen Concentration - - Weight 94.6 kg (208 lb 8 oz) 11/11/2023 11:15 AM EDT Height 170.2 cm (5' 7 ) 11/11/2023 11:15 AM EDT Body Mass Index 32.66 11/11/2023 11:15 AM EDT Plan of Treatment Health Maintenance Due Date Last Done Comments [facility]-HIV Screening 1994 [facility]-Hepatitis C Screening 1994 [facility]-/Child/Adol SDOH Screenings 1994 [facility]-Varicella Vaccines (1 of 2 - 13+ 2-dose series) 11/07/2007 HPV Vaccines (1 - 3-dose series) 2009 [facility]-Hepatitis B Vaccines (1 of 3 - 19+ 3-dose series) 2013 [facility]-Pap Smear 11/07/2015 [id number] Vaccine (4 - 2023- season) 2023 05/05/2021, 11/11/2020, 10/21/2020 [facility]- SDOH Screenings 05/10/2024 [facility]-Adult SDOH Screenings 05/10/2024 11/11/2023 [facility]-Influenza Vaccine (#1) 11/02/202412/21, 12/25/2021, 09/12/2021, Additional history exists [facility]-Depression Screening 11/10/2024 11/11/2023 [facility]-DTaP,Tdap,and Td Vaccines (2 - Td or Tdap) 05/08/2032 05/08/2022 [facility]-Zoster Vaccines (1 of 2) 2044 [facility]-Hepatitis A Vaccines Aged Out 01/17/2018 No longer eligible based on patient's age to complete this topic [facility]-Obesity Intervention Completed 024, 08/12/2023, 01/18/2023, Additional history exists [facility]-HIB Vaccines Aged Out No longer e ligible based on patient's age to complete this topic [facility]-IPV Vaccines Aged Out No longer e ligible based on patient's age to complete this topic [facility]-Pneumococcal Vaccine: Pediatrics (0 to 5 Years) and At-Risk Patients (6 to 49 Years) Aged Out No longer eligible based on patient's age to complete this topic [facility]-Rotavirus Vaccines Aged Out No lo nger eligible based on patient's age to complete this topic Insurance [facility] Care Teams Terra Cotta Setter Relationship Specialty Start Date End Date Mai Adams APRN [address] [place] [address] PCP - General 07/15/20
--- OUTSIDE RECORDS SUMMARY | 2024-09-15 13:15 | XMS_ITS | Patient Health Record ---
Author Organization [facility] Address [address] [place] [address] Care Team Providers Care Instructional Technology Director Name Role Phone [facility] Primary Care Provider Unavailable Allergies No Known Allergies Reason For Referral No Information Medications Medication SIG (Take, Route, Frequency, Duration) Notes Start Date End Date Status CONTROL PILL 0 0 0 0 *Please rev iew for potential replacement for e-prescription and drug interaction check* Active Phentermine HCl 15 MG 1 capsule Orally Once a day Active Lisinopril 5 MG 1 tab(s) orally once a day Active Immunizations Vaccine Route Administration Date Status Comme nts [id number] Quad PFS (0.5mL Admin) 18 y/o & older Unknown 09/12/2021 Administered z2022 Fluzone Quad PFS (0.5m L Admin) 6 months & older Unknown 11/03/2021 Refused Social History Tobacco Use: Social History Observation Description Date Details (start date - stop date) Never Smoker NA - NA Tobacco Use Question Answer Notes Are you a Never smoker Problems Problem Type SNOMED Code ICD Code Onset Dates Problem Status W/U Status Risk Notes Problem Hypertension (53274598) Hypertension (I10) Active confirmed Problem 715636191 Obesity (BMI 30-39.9) (E66.9) Active confirmed Problem Overweight (BMI 25.0-29.9) (E66.3) Active confirmed Plan Of Treatment No Information Insurance Providers Payer Name Payer Address Payer Phone Subscriber Number Group Number Insured Name Patient Relationship to Insured Coverage Start Date Coverage End Date [facility] [address] [place] [address] [phone] [id number] EA Olesya Diaz Self - patient is the insured Medical (General) History Medical History History ICD Code Hypertension I10
[2024-09-15 13:47] VITALS: BMI 40.2
== END 2024-09-15 14:30 | disposition home or self-care (01) ==
LOC: OBOUT 13:06 → OB 13:09
PROVIDERS: PCP Student in an Organized Health Care Education/Training Program; Visit Provider Nurse Practitioner Obstetrics & Gynecology
DX: Z34.03 Encounter for supervision of normal first pregnancy, third trimester (principal); Z3A.34 34 weeks gestation of pregnancy; V89.2XXA Person injured in unspecified motor-vehicle accident, traffic, initial encounter